=== PATIENT | male | born 1945 | race Caucasian/White ===

== ENCOUNTER → 2019-01-01 | Outpatient (CLI) | payer OTHER ==
[~2019-01-01] MED LIST: ASA81BEC PO; CENTRUM SILVER1 EAC4 PO; COREG PO; COREG6.25 MG PO; COUMADIN 2 MG TA2 M1 PO; COUMADIN 4 MG TA4 M1 PO; EFFIENT10 MG; FUROSEMIDE PO; ICAPS TABLET1 EACH PO; KEFLEX250 MG PO; LISINOPRIL5 MG PO; NICOTINE TRANSD14 M1 TD; NOHOMEMEDICATIONS; SIMVASTATIN40 MG PO; SPIRONOLACTONE25 M1 PO; ZESTRIL2.5 MG PO; ZOCOR 20 MG TAB20 M1 PO
== END ==
LOC: RAD 14:03
DX: I25.5 Ischemic cardiomyopathy (principal); Z95.810 Presence of automatic (implantable) cardiac defibrillator

== ENCOUNTER → 2019-01-03 | Outpatient (CLI) | payer OTHER ==
[~2019-01-03] VITALS: Ht 175.3 cm; Wt 77.1 kg
[2019-01-03 10:37] LABS: HEMATOCRIT 51.3 % (42.0-52.0); HEMOGLOBIN 17.6 gm/dL (14.0-18.0); MCH 31.6 pg (26.0-34.0); MCHC 34.2 g/dL (28.0-37.0); MCV 92.2 fL (80.0-100.0); RBC 5.56 mil/uL (4.50-6.00); RDW 12.8 % (10.5-14.5); WBC 7.8 thou/uL (4.0-11.0)
[2019-01-03 10:57] LABS: CALCIUM 9.8 mg/dL (8.5-10.1); CREATININE 1.1 mg/dL (0.7-1.3); POTASSIUM 4.6 mmol/L (3.5-5.1)
[2019-01-03 11:05] LABS: ALBUMIN 4.2 g/dL (3.4-5.0); TOTAL PROTEIN 8.2 g/dL (6.4-8.2)
[2019-01-03 11:09] LABS: APTT 26.5 Seconds (24.5-32.8); INR 1.1
[2019-01-03 11:13] VITALS: BP 128/67
--- NOTE | 2019-01-18 15:48 | P ---
[facility] [place] [address] PROCEDURE REPORT Name: LINUSKIMO ALBERTO [facility]: [facility] [id number] Admission: 01/03/19 ������������������ Attend Phys: Errol Peña MD Discharge: ������������������ Date of : 45 Report #: [id number] THIS REPORT FOR: //name// CC: Tatyana Peña PROCEDURE: ICD generator exchange. PREOPERATIVE DIAGNOSIS: Premature battery depletion. POSTOPERATIVE DIAGNOSIS: Premature battery depletion. HISTORY: The patient is a 73-year-old who is status post [employer] ICD implantation for primary prevention of sudden cardiac . He was recently seen in Cardiology Clinic and his defibrillator could not be interrogated. It appeared that it had premature battery depletion as the previous device checked 6 months ago showed that there was still 6 years of battery life left. He is here for ICD generator exchange. ANESTHESIA: The patient underwent MAC anesthesia with no anesthesia related complications. DESCRIPTION OF PROCEDURE: The patient underwent informed consent. We discussed the details of the procedure including the risks, which include but not limited to bleeding, infection, vascular damage and need for possible lead revisions. He understood these risks and is willing to proceed. The patient was brought to EP laboratory in fasting and sedated state, prepped and draped in sterile fashion and received IV antibiotics. Next, lidocaine was injected at the incision site. The incision was made, the chronic pocket was entered, the old device was disconnected and the new device was connected. The pocket was closed in 2 layers using 2-0 for the deep layer, 3-0 for the mid layer and surgical glue was placed to the outer skin layer. The patient awoke neurologically and hemodynamically intact. No complications and no significant bleeding. The explanted device was a [employer] model #E102 [employer] serial #[id number]. The newly implanted device was a [employer], model #[id number], serial #[id number]. The ICD lead was a [employer] model #0184, serial #[id number]. This was implanted on 05/13/2010. This lead demonstrated an R-wave of 11.8 millivolts, pacing impedance of 540 ohms, pacing threshold 0.75 volts at 0.5 milliseconds. The device was programmed to the VVI 40 mode. VT monitor zone was set at 150-187 beats per minute. The VF zone was set at greater than 187 beats per minute with ATP while charging followed by max output shocks. CONCLUSIONS: [facility] [address] [place] [address] PROCEDURE REPORT Name: KIMO BARRIGA Room #: REG Kathleen GomezDwight#: [id number] Admission: 01/03/19 ������������������ Attend Phys: Errol Peña MD Discharge: ������������������ Date of : 45 Report #: [id number] 1. Successful ICD generator exchange. 2. Satisfactory ventricular pacing and sensing thresholds. ��������������������������������������������� <ELECTRONICALLY SIGNED> ���������������������������������������� By: Errol Peña MD ��������������������������������������������� 01/18/19 [id number] [id number] Errol Peña MD /dev
== END | disposition home or self-care (01) ==
LOC: CATH 07:16
PROVIDERS: Internal Medicine Cardiovascular Disease
DX: T82.111A Breakdown (mechanical) of cardiac pulse generator (battery), initial encounter (principal); I42.9 Cardiomyopathy, unspecified; I11.0 Hypertensive heart disease with heart failure; I50.22 Chronic systolic (congestive) heart failure; I25.2 Old myocardial infarction; E78.5 Hyperlipidemia, unspecified; J44.9 Chronic obstructive pulmonary disease, unspecified; F17.210 Nicotine dependence, cigarettes, uncomplicated; Z82.49 Family history of ischemic heart disease and other diseases of the circulatory system; Z98.890 Other specified postprocedural states; Z79.899 Other long term (current) drug therapy; Y83.8 Other surgical procedures as the cause of abnormal reaction of the patient, or of later complication, without mention of misadventure at the time of the procedure
CPT/HCPCS: 62110; 62900; 70005

== ENCOUNTER → 2019-07-09 | Outpatient (CLI) | payer OTHER | LOC: SJCVC 07:51 → SJCVCIMAG 13:01 | DX: I65.23 Occlusion and stenosis of bilateral carotid arteries (principal); F17.200 Nicotine dependence, unspecified, uncomplicated ==

== ENCOUNTER → 2019-12-03 | Outpatient (CLI) | payer OTHER | LOC: SJCVC 13:16 | PROVIDERS: ATTEND Internal Medicine | DX: R00.1 Bradycardia, unspecified (principal); R94.31 Abnormal electrocardiogram [ECG] [EKG]; I25.10 Atherosclerotic heart disease of native coronary artery without angina pectoris; I50.22 Chronic systolic (congestive) heart failure; E78.5 Hyperlipidemia, unspecified; J43.2 Centrilobular emphysema; I65.23 Occlusion and stenosis of bilateral carotid arteries; E78.00 Pure hypercholesterolemia, unspecified; I25.2 Old myocardial infarction; F17.210 Nicotine dependence, cigarettes, uncomplicated; Z79.82 Long term (current) use of aspirin; Z79.899 Other long term (current) drug therapy; Z98.61 Coronary angioplasty status; Z82.49 Family history of ischemic heart disease and other diseases of the circulatory system ==

== ENCOUNTER → 2020-03-06 | Outpatient (CLI) | payer OTHER | LOC: SJCVCIMAG 08:44 | PROVIDERS: ATTEND Internal Medicine | DX: I65.23 Occlusion and stenosis of bilateral carotid arteries (principal); I08.1 Rheumatic disorders of both mitral and tricuspid valves; I27.20 Pulmonary hypertension, unspecified; R94.31 Abnormal electrocardiogram [ECG] [EKG]; I44.0 Atrioventricular block, first degree; R00.1 Bradycardia, unspecified; I25.10 Atherosclerotic heart disease of native coronary artery without angina pectoris; I11.0 Hypertensive heart disease with heart failure; I50.22 Chronic systolic (congestive) heart failure; E78.5 Hyperlipidemia, unspecified; J43.2 Centrilobular emphysema; Z79.899 Other long term (current) drug therapy; Z87.891 Personal history of nicotine dependence ==

== ENCOUNTER → 2020-09-04 | Outpatient (CLI) | payer OTHER | LOC: SJCVC 12:57 | PROVIDERS: ATTEND Internal Medicine | DX: R94.31 Abnormal electrocardiogram [ECG] [EKG] (principal); R00.1 Bradycardia, unspecified; I25.10 Atherosclerotic heart disease of native coronary artery without angina pectoris; I50.22 Chronic systolic (congestive) heart failure; E78.5 Hyperlipidemia, unspecified; J43.2 Centrilobular emphysema; I65.23 Occlusion and stenosis of bilateral carotid arteries; E78.00 Pure hypercholesterolemia, unspecified; I25.5 Ischemic cardiomyopathy; I25.2 Old myocardial infarction; Z79.899 Other long term (current) drug therapy; Z87.891 Personal history of nicotine dependence ==